=== PATIENT | female | born 1960 | race Two or more races ===

== ENCOUNTER 2016-10-08 12:42 | Emergency (ER) | payer OTHER ==
[2016-10-08 13:48] LABS: SPECIFIC GRAVITY 1.015 (1.001-1.030); URINE BILIRUBIN NEGATIVE (NEGATIVE); URINE BLOOD 4+ (NEGATIVE); URINE GLUCOSE (UA) NEGATIVE (NEGATIVE); URINE LEUKOCYTE ESTERASE 1+ (NEGATIVE); URINE NITRITE NEGATIVE (NEGATIVE); URINE PROTEIN 1+ (NEGATIVE); URINE UROBILINOGEN NORMAL (0-1 mg/dl)
[2016-10-08 13:50] LABS: HCG,QUALITATIVE URINE NEGATIVE; URINE APPEARANCE CLOUDY; URINE COLOR AMBER
[2016-10-08 13:55] LABS: URINE RBC 50-60 /hpf; URINE WBC 20-30 /hpf
[2016-10-08 13:57] LABS: URINE BACTERIA 1+
[2016-10-08] MEDS ORDERED: NITROFURANTOIN/NITROFURAN MAC 100 MG CAPSULE ONE (14:40)
[2016-10-08] MEDS ORDERED: PHENAZOPYRIDINE HCL 200 MG TABLET ONE (14:40)
[2016-10-10 15:02] LABS: CHLAMYDIA BD Negative (Negative); N.GONORRHOEAE BD Negative (Negative); SOURCE Vaginal (())
== END 2016-10-08 12:49 | disposition home or self-care (01) ==
LOC: ED 12:42
DX: N39.0 Urinary tract infection, site not specified (principal); R31.9 Hematuria, unspecified; K21.9 Gastro-esophageal reflux disease without esophagitis; I10 Essential (primary) hypertension; E11.9 Type 2 diabetes mellitus without complications; Z79.84 Long term (current) use of oral hypoglycemic drugs
CPT/HCPCS: 87491; 87591; 81025; 87086; 81001; 87210; 99283 ×2; A9270 ×2